=== PATIENT | male | born 1945 | race Caucasian/White ===

== ENCOUNTER 2016-09-12 10:36 | Emergency (ER) | payer OTHER ==
[2016-09-12 10:58] VITALS: TEMP 98.1
--- NOTE | 2016-09-12 13:27 | EDPHY ---
H & P Smoking Status: Never smoked Time Seen by Provider: 09/12/16 10:52 HPI/ROS: CHIEF COMPLAINT: Left 5th finger injury HISTORY OF PRESENT ILLNESS: 70-year-old male presents to the emergency department by private vehicle with a friend complaining of isolated injury to his left 5th finger. The patient states that was at home and he fell and dislocated his left 5th finger. He is right-hand dominant. He did not hit his head or lose consciousness. He denies any other trauma or injury. Denies any presyncopal symptoms prior to his fall. ROS: Denies numbness or tingling in his fingers, pain in his left wrist or elbow. Denies headache. (Yamilex Rivas) Past Medical/Surgical History: Epilepsy, tonsillectomy, orthopedic surgery (Yamilex Rivas) Social History: Single and lives in [place]. (Yamilex Rivas) Physical Exam: On examination the patient is mentating normally and answering questions appropriately. No visible signs of trauma to his head. Obvious deformity noted to the left 5th finger at the MCP joint. No palpable bony deformity is palpated. Has normal sensation to light touch with normal 2 point discrimination. Normal capillary refill. The other fingers appear on injured. Full range of motion of his left wrist. No abrasion, puncture wound or signs of open fracture injury. (Yamilex Rivas) Constitutional: Initial Vital Signs Temperature (C) 36.7 C 09/12/16 10:40 Heart Rate 87 09/12/16 10:40 Respiratory Rate 18 09/12/16 10:40 Blood Pressure 139/78 H 09/12/16 10:40 O2 Sat (%) 96 09/12/16 10:40 O2 Delivery Mode Room Air Allergies/Adverse Reactions: No Known Allergies Allergy (Verified 09/12/16 10:44) Home Medications: Medication Instructions Recorded Dilantin (RX) 04/22/15 MDM/Departure - [facility] Imaging: I viewed and interpreted images myself - [facility] Imaging Results: X-rays were reviewed by myself and the PAC system. (Yamilex Rivas) ED Course/Re-evaluation: 70-year-old female presents to the emergency department with left 5th finger injury. Clinically this patient has a dislocation of the left 5th digit at the MCP joint. No signs of open fracture or puncture wound. Digital block using 1% lidocaine without epinephrine 0.5% bupivacaine without epinephrine was performed after consent was obtained. I was unable to successfully relocate the finger after multiple attempts. Dr. Naomi Buitrago also evaluated the patient and performed a hematoma block and attempted to relocate the finger as well and this was unsuccessful. The patient [place] and he asked that we speak with a [place] doctor. I spoke with the [facility] physician and called the nurse practitioner on-call for Orthopedics, Titus at [phone]. I also spoke with our on-call hand surgeon, Dr. Virginia Elliott. Dr. Garcia felt that if the patient was neurovascularly intact, this could be splinted and he could follow up with his [place] physician on Wednesday. I explained these options to the patient the patient elected to go to [facility] now and Titus from Orthopedics would see him there. He understands that he will likely require surgical procedure to have this opened since he likely has a volar plate or soft tissue stuck providing relocation. I advised the patient not to eat or drink anything in route to [facility]. [facility]. The patient had friend at bedside, Mo, who agreed to take him to [facility] to be seen by [place] orthopedic hand surgeon. (Yamilex Rivas) The patient wasevaluatedand managed by themidlevel provider. Idiscussed the patient's presentation and course with thephysicianassistantor nurse practitionerand agree with theevaluation. My co-signature indicates that I have reviewed this chart and I agree with the findings and plan of care as documented. I am the secondary supervisingphysician. I participated in the care of this patient as well, by attempting closed reduction of the 5th MCP dislocation. After placing a hematoma block, usual reduction attempt made with traction. I was unable to reduce the dislocation. Patient tolerated attempt with some discomfort, but no significant complications. Patient transfered to [facility] to be see by a [place] Hand Surgeon as specialty consultation. (Naomi Buitrago) - Depart Disposition: Home, Routine, Self-Care Clinical Impression: Dislocation of left little finger Qualifiers: Encounter type: initial encounter Qualified Code(s): S63.257A - Unspecified dislocation of left little finger, initial encounter Condition: Good Instructions: Finger Dislocation (ED) Additional Instructions: Go directly to [facility]. Tell them that we spoke with the on- call orthopedic nurse practitioner, Jacek, and he will see you in the emergency department for your dislocated finger. Do not eat or drink anything in case you require operative repair. Referrals: JULIENNE HANSON [Other] - As per Instructions
[2016-09-12 13:55] VITALS: BP 134/76; PULSE 81; RESP 19; O2SAT 98
== END 2016-09-12 13:54 | disposition home or self-care (01) ==
PROC: 0RSXXZZ Reposition Left Finger Phalangeal Joint, External Approach (ICD-10-PCS; principal; 2016-09-12)
DX: S63.257A Unspecified dislocation of left little finger, initial encounter (principal); W01.0XXA Fall on same level from slipping, tripping and stumbling without subsequent striking against object, initial encounter; Y92.009 Unspecified place in unspecified non-institutional (private) residence as the place of occurrence of the external cause

== ENCOUNTER 2017-02-23 20:22 | Emergency (ER) | payer OTHER ==
[2017-02-23 20:31] VITALS: RESP 18; TEMP 98.4
--- NOTE | 2017-02-23 22:50 | EDPHY ---
General Narrative: CHIEF COMPLAINT: Leg injury HISTORY OF PRESENT ILLNESS: Patient complains of left medina injury on Wednesday. He says he was walking in his home when he tripped and had a mechanical fall. He struck his left chin on the ground. Since then he has had a area of swelling and pain on the left medial medina. Minimally painful. There is no pain in the knee, heel, ankle, foot. There is no pain in the left calf. No swelling of the leg. No numbness, tingling or redness. No fever chills. He is concerned as there is an area of swelling and minimal pain. He has not take any blood thinners. He has no other associated complaints or modifying factors. ESTABLISHED ORTHOPEDIST: None REVIEW OF SYSTEMS: Ten systems reviewed and are negative unless otherwise noted in the HPI PAST MEDICAL HISTORY: Epilepsy on Dilantin. PAST SURGICAL HISTORY: Orthopedic injury as a child SOCIAL HISTORY: Nonsmoker. No alcohol. No illicit substance use. He is retired financial processing clerk. Lives in [place]. FAMILY HISTORY: Noncontributory EXAMINATION General Appearance: Alert, no distress Cardiovascular: Pulses normal throughout. Symmetric DP and PT pulses 2+. Brisk cap refill Neurological: A&O, sensory symmetric, strength symmetric. No footdrop. Skin: Warm and dry, no rash. No petechiae or purpura. Left anterior medina varicosities noted. Left anterior medina hematoma noted. No warmth or signs of infection. No bleeding. No purulence. No surrounding induration Extremities: All compartments of the left lower extremity are soft. Range of motion is intact and symmetric to the left lower extremity the right. Nontender , no pedal edema. No calf tenderness. No asymmetry of the lower extremities. No evidence of DVT by examination. Psychiatric: Mood and affect normal DIFFERENTIAL DIAGNOSES: Including but not limited to hematoma, affect hematoma, sprain, strain, contusion, fracture varicosity MDM: 10:15 p.m. Mild blunt trauma to the left medina on Wednesday. Patient has a small hematoma on the left medial aspect over the anterior tibialis. There is no evidence of compartment syndrome. No posterior pain. No pain in the popliteal fossa. He is neurovascular intact distally with normal gait. X-ray has been ordered to rule out fracture. 10:50 p.m. Left anterior small hematoma. There are no signs of infected hematoma. There are varicosities noted. There is no calf tenderness. No erythema or edema of the leg. There is no evidence of DVT by examination. There is no evidence of compartment syndrome. No cellulitis. He is fully ambulatory without deficit or difficulty. Recommend symptomatic care of the hematoma. Recommend follow up with his [place] physician in 1-2 days for recheck, and for the possibility of wound care versus physical therapy for this. We discussed signs and symptoms of compartment syndrome, DVT and infected hematoma, he should report to the emergency department should any of these develop. He is comfortable this plan. He is discharged home fully ambulatory, neuro intact in stable condition - History Smoking Status: Never smoked - Objective Vital Signs: Initial Vital Signs Temperature (C) 98.4 F 02/23/17 20:28 Heart Rate 88 02/23/17 20:28 Respiratory Rate 18 02/23/17 20:28 Blood Pressure 139/79 H 02/23/17 20:28 O2 Sat (%) 95 02/23/17 20:28 O2 Delivery Mode Room Air Allergies/Adverse Reactions: No Known Allergies Allergy (Verified 09/12/16 10:44) Home Medications: Medication Instructions Recorded Dilantin (RX) 04/22/15 Departure - Departure Disposition: Home, Routine, Self-Care Clinical Impression: Varicosities of leg Hematoma of leg Qualifiers: Encounter type: initial encounter Laterality: left Qualified Code(s): S80.12XA - Contusion of left lower leg, initial encounter Condition: Good Instructions: Varicose Veins (ED), Hematoma (ED) Additional Instructions: 1. Contact primary care physician tomorrow for follow-up this week 2. Return for signs of infected hematoma as discussed should they develop 3. Return for any rest of the leg or foot, swelling of the foot, numbness or tingling, worsening pain Referrals: NONE *PRIMARY CARE P,. [Unknown] - As per Instructions [facility] ,. [Edm Groups for Call Sched] - As per Instructions Olivia Longoria MD [Doctor of Osteopathy] - As per Instructions
[2017-02-23 23:02] VITALS: BP 125/84; PULSE 81; O2SAT 94
== END 2017-02-23 23:01 | disposition home or self-care (01) ==
DX: S80.12XA Contusion of left lower leg, initial encounter (principal); I83.90 Asymptomatic varicose veins of unspecified lower extremity; W01.0XXA Fall on same level from slipping, tripping and stumbling without subsequent striking against object, initial encounter; Y92.009 Unspecified place in unspecified non-institutional (private) residence as the place of occurrence of the external cause; Y99.8 Other external cause status; Y93.01 Activity, walking, marching and hiking

== ENCOUNTER 2017-06-25 08:28 | Emergency (ER) | payer OTHER ==
--- NOTE | 2017-06-25 08:54 | EDPHY ---
H & P Stated Complaint: RLQ pain starting yesterdah Time Seen by Provider: 06/25/17 08:46 HPI/ROS: Chief Complaint: Right-sided abdominal pain HPI: 71-year-old male began having pain in his right lateral abdomen yesterday. Is persisted. It hurts to move around in take a deep breath. Better at rest. Has not had any cough. No fevers or chills. No nausea or vomiting. No diarrhea or constipation. No urinary urgency or frequency. Does not have a history of similar pain in the past. He states the pain waxes and wanes from a 3 to 10. He denies any recent falls or injuries. ROS: 10 point Review of Systems is negative except as noted in the HPI. PMH: Epilepsy on Dilantin Social History: No smoking, no alcohol, no recreational drug use Family History: non-contributory Physical Exam: Gen: Awake, Alert, No Distress HEENT: Nose: no rhinorrhea Eyes: PERRLA, EOMI Mouth: Moist mucosa Neck: Supple, no JVD Chest: nontender, lungs clear to auscultation Heart: S1, S2 normal, no murmur Abd: Soft, non-tender, no guarding Back: no CVA tenderness, no midline tenderness Ext: no edema, non-tender Skin: no rash Neuro: CN II-XII intact, Sensation grossly intact, Strength 5/5 in bilateral upper and lower extremities - Personal History Current Tetanus/Diphtheria Vaccine: Yes Current Tetanus Diphtheria and Acellular Pertussis (TDAP): Yes Tetanus Vaccine Date: < 10 years - Medical/Surgical History Hx Asthma: No Hx Chronic Respiratory Disease: No Hx Diabetes: No Hx Cardiac Disease: No Hx Renal Disease: No Hx Cirrhosis: No Hx Alcoholism: No Hx HIV/AIDS: No Hx Splenectomy or Spleen Trauma: No Other PMH: Epilepsy, right arm surgery, tonsillectomy, hypothyroid - Social History Smoking Status: Never smoked Constitutional: Initial Vital Signs Temperature (C) 36.5 C 06/25/17 08:30 Heart Rate 95 06/25/17 08:30 Respiratory Rate 20 06/25/17 08:30 Blood Pressure 136/69 H 06/25/17 08:30 O2 Sat (%) 93 06/25/17 08:30 O2 Delivery Mode Room Air Allergies/Adverse Reactions: No Known Allergies Allergy (Verified 06/25/17 08:30) Home Medications: Medication Instructions Recorded Dilantin (RX) 04/22/15 Synthroid 06/25/17 Medical Decision Making - Diagnostics Imaging Results: Imaging Impressions Chest X-Ray 06/25/17 08:52 Impression: Bibasilar subsegmental atelectasis versus mild infiltrates. ED Course/Re-evaluation: On reexamination patient's abdomen is soft and nontender. He has no reproducible tenderness. He has no cough or shortness of breath. Blood work is normal. Urinalysis is negative. I am not finding an intra-abdominal or intrathoracic cause of his discomfort. Plan will be to discharge on anti- inflammatories and follow up with primary care physician, he will return for worsening. - Data Points Laboratory Results: Laboratory Results 06/25/17 08:59 06/25/17 08:59 06/25/17 06/25/17 06/25/17 10:25 08:59 08:59 WBC 8.48 10^3/uL 10^3/uL (3.80-9.50) RBC 4.64 10^6/uL 10^6/uL (4.40-6.38) Hgb 14.8 g/dL g/dL (13.7-17.5) Hct 43.5 % % (40.0-51.0) MCV 93.8 fL fL (81.5-99.8) MCH 31.9 pg pg (27.9-34.1) MCHC 34.0 g/dL g/dL (32.4-36.7) RDW 13.7 % % (11.5-15.2) Plt Count 172 10^3/uL 10^3/uL (150-400) MPV 8.5 fL L fL (8.7-11.7) Neut % (Auto) 74.4 % H % (39.3-74.2) Lymph % (Auto) 9.9 % L % (15.0-45.0) Rogers % (Auto) 15.0 % H % (4.5-13.0) Eos % (Auto) 0.4 % L % (0.6-7.6) Baso % (Auto) 0.1 % L % (0.3-1.7) Nucleat RBC Rel Count 0.0 % % (0.0-0.2) Absolute Neuts (auto) 6.31 10^3/uL 10^3/uL (1.70-6.50) Absolute Lymphs (auto) 0.84 10^3/uL L 10^3/uL (1.00-3.00) Absolute Monos (auto) 1.27 10^3/uL H 10^3/uL (0.30-0.80) Absolute Eos (auto) 0.03 10^3/uL 10^3/uL (0.03-0.40) Absolute Basos (auto) 0.01 10^3/uL L 10^3/uL (0.02-0.10) Absolute Nucleated RBC 0.00 10^3/uL 10^3/uL (0-0.01) Immature Gran % 0.2 % % (0.0-1.1) Immature Gran # 0.02 10^3/uL 10^3/uL (0.00-0.10) Sodium 145 mEq/L mEq/L (135-145) Potassium 4.3 mEq/L mEq/L (3.5-5.2) Chloride 101 mEq/L mEq/L (97-110) Carbon Dioxide 28 mEq/l mEq/l (22-31) Anion Gap 16 mEq/L mEq/L (8-16) BUN 17 mg/dL mg/dL (7-23) Creatinine 0.8 mg/dL mg/dL (0.7-1.3) Estimated GFR > 60 Glucose 114 mg/dL H mg/dL (70-100) Calcium 9.0 mg/dL mg/dL (8.5-10.4) Total Bilirubin 0.4 mg/dL mg/dL (0.1-1.4) AST 17 IU/L IU/L (17-59) ALT 22 IU/L IU/L (21-72) Alkaline Phosphatase 118 IU/L IU/L (38-126) Total Protein 6.7 g/dL g/dL (6.3-8.2) Albumin 3.8 g/dL g/dL (3.5-5.0) Lipase 72 IU/L IU/L (23-300) Urine Color YELLOW Urine Appearance HAZY Urine pH 5.0 (5.0-7.5) Ur Specific [place] 1.027 (1.002-1.030) Urine Protein NEGATIVE (NEGATIVE) Urine Ketones NEGATIVE (NEGATIVE) Urine Blood NEGATIVE (NEGATIVE) Urine Nitrate NEGATIVE (NEGATIVE) Urine Bilirubin NEGATIVE (NEGATIVE) Urine Urobilinogen NEGATIVE EU EU (0.2-1.0) Ur Leukocyte Esterase NEGATIVE (NEGATIVE) Urine Glucose NEGATIVE (NEGATIVE) Departure - Departure Disposition: Home, Routine, Self-Care Clinical Impression: Flank pain Condition: Good Instructions: Flank Pain (ED) Additional Instructions: Alternate acetaminophen (1000 mg) with ibuprofen (400 mg) every 4 hours as needed for pain. Follow up with your primary care physician in 2-3 days for further evaluation. Return to the emergency department for increasing abdominal pain, pain with urination, chest pain, shortness of breath, fevers, chills, or any other concerns. Referrals: NONE *PRIMARY CARE P,. [Primary Care Provider] - As per Instructions
[2017-06-25 09:07] LABS: PLATELET COUNT 172 10^3/uL (150-400)
--- NOTE | 2017-06-25 10:23 | ASMTLACE ---
LACE Length of stay for Answers: Less than 1 day current admission Acuity / Level of Answers: No Care: Did the patient have an inpatient admission? # of Emergency department Answers: 1-2 visits in the last 6 months Score: 1 Date Signed: 06/25/2017 10:23 AM Electronically Signed By:Rakel Ruiz LCSW
[2017-06-25 11:21] VITALS: BP 128/77; PULSE 89; RESP 16; TEMP 98.1; O2SAT 97
== END 2017-06-25 11:20 | disposition home or self-care (01) ==
DX: R10.9 Unspecified abdominal pain (principal)